=== PATIENT | female | born 1945 | race Caucasian/White ===

== ENCOUNTER → 2019-12-04 | Outpatient (CLI) | payer MEDICARE ==
[2019-12-04 12:25] LABS: ABG BASE EXCESS 3.8 MMOL/L (-2.5-2.5); ABG OXYGEN SATURATION 96 % (94-100); ABG PCO2 37 MMHG (35-45); ABG PH 7.48 (7.37-7.43); ABG PO2 69 MMHG (79-93); ABG TCO2 28.6 MMOL/L (21.0-31.0)
[2019-12-04 12:26] LABS: ALLENS TEST YES-POS; INSPIRED O2 RA
[2019-12-04 12:27] LABS: PATIENT TEMP 36.1; VENTILATOR NO
--- NOTE | 2019-12-04 13:20 | Diagnostic Imaging Report ---
INDICATION: Bronchitis PA and lateral views of the chest were obtained. FINDINGS: The heart size, mediastinal configuration, and pulmonary vascularity are within normal limits. There is no pleural effusion, pneumothorax, or pneumonia. The osseous structures are unremarkable. IMPRESSION: No acute cardiopulmonary abnormality. Dictated by: Dictated on workstation # [id number]
== END ==
LOC: RAD 11:49
PROVIDERS: ATTEND Nurse Practitioner Family
DX: J98.4 Other disorders of lung (principal); J30.9 Allergic rhinitis, unspecified; R91.8 Other nonspecific abnormal finding of lung field; R06.00 Dyspnea, unspecified; R05 Cough
CPT/HCPCS: 71046; 82805

== ENCOUNTER 2019-12-07 12:00 | Outpatient (CLI) | payer MEDICARE ==
[~2019-12-07] VITALS: Ht 162.6 cm; Wt 89.1 kg
[2019-12-07] MEDS ORDERED: FLUT9.9S NS (12:26)
[2019-12-07] MEDS ORDERED: ESOM20CA PO (12:26)
[2019-12-07] MEDS ORDERED: BUDE10.2 IH (12:26)
[2019-12-07] MEDS ORDERED: ENAL1TAB9 PO (12:26)
[2019-12-07] MEDS ORDERED: MONT10TA24 PO (12:26)
[2019-12-07] MEDS ORDERED: CETI10TA20 PO (12:26)
[2019-12-07] MEDS ORDERED: CHOL500061 PO (12:26)
[2019-12-07] MEDS ORDERED: LACT1CAP74 PO (12:26)
== END 2019-12-07 13:33 | disposition home or self-care (01) ==
LOC: PREOP 12:00
PROVIDERS: ATTEND Internal Medicine Critical Care Medicine
DX: Z01.818 Encounter for other preprocedural examination (principal)

== ENCOUNTER → 2020-03-04 | Outpatient (CLI) | payer MEDICARE ==
[~2020-03-04] MED LIST: BUDE10.2 IH; CATHETER FLUSH 10 ML SYR IV PRN; CETI10TA21 PO; CHOL500061 PO; ENAL1TAB9 PO; ESOM20CA PO; FLUT9.9S NS; HOLD METFORMIN - RECEIVED CONTRAST 20 ML VIAL IV SCH; IOHEXOL 350 MG/ML 100 ML (OMNIPAQUE 350) VIAL IV ONE; LACT1CAP74 PO; MONT10TA26 PO; NS 100 ML (IVPB) BAG IV ONE
[2020-03-04 11:38] LABS: BUN/CREATININE RATIO 18; CREATININE SERUM 0.85 MG/DL (0.60-1.30); GFR ESTIMATED > 60
--- NOTE | 2020-03-04 13:29 | Diagnostic Imaging Report ---
PROCEDURE: CT chest with contrast only. TECHNIQUE: Multiple contiguous axial images were obtained through the chest after administration of intravenous contrast. Auto Exposure Controls were utilized during the CT exam to meet ALARA standards for radiation dose reduction. INDICATION: Dyspnea. Cough. COMPARISON: Chest radiograph on 12/13/2019. CTA chest on 11/19/2019. FINDINGS: The heart size is within normal limits. A moderate pericardial effusion is visualized, primarily overlying the left ventricle. This has increased in size compared to the prior exam and measures 1.2 cm in thickness. There is no mediastinal, hilar, or axillary lymphadenopathy. Similar appearance of the nodule in the periphery of the right middle lobe measuring 1.0 cm. Stable nodule in the left upper lobe measuring 0.6 cm. Additional smaller subcentimeter pulmonary nodules are scattered throughout the lungs. A calcified granuloma is noted in the right upper lobe. There are no focal areas of consolidation. No central endobronchial obstructing lesions are identified. There is no pleural effusion or pneumothorax. The osseous structures demonstrate no acute abnormalities. There is hepatic steatosis. Stable focus of hypoattenuation is seen in the left hepatic lobe. Both adrenal glands are unremarkable. IMPRESSION: 1. Multiple nodules throughout the lungs with the largest measuring 1.0 cm in the right middle lobe. These are stable compared to the exam from 11/19/2019. Recommend continued close interval followup in 6 months. Alternatively, PET/CT may be considered to evaluate for metabolic activity. 2. Moderate pericardial effusion, primarily overlying the left ventricle. This has increased in size compared to the prior exam. If not already performed, consider echocardiogram to further evaluate. 3. Hepatic steatosis. Dictated by: Dictated on workstation # [id number]
== END ==
LOC: RAD 10:36
PROVIDERS: ATTEND Nurse Practitioner Family
DX: J30.9 Allergic rhinitis, unspecified (principal); J98.4 Other disorders of lung; R05 Cough; R91.8 Other nonspecific abnormal finding of lung field; R06.00 Dyspnea, unspecified; E66.2 Morbid (severe) obesity with alveolar hypoventilation; I31.3 Pericardial effusion (noninflammatory); K76.0 Fatty (change of) liver, not elsewhere classified
CPT/HCPCS: 36415; 71260; 82565; 84520

== ENCOUNTER → 2020-03-12 | Outpatient (CLI) | payer MEDICARE ==
[~2020-03-12] MED LIST changes: -CATHETER FLUSH 10 ML SYR IV PRN; -HOLD METFORMIN - RECEIVED CONTRAST 20 ML VIAL IV SCH; -IOHEXOL 350 MG/ML 100 ML (OMNIPAQUE 350) VIAL IV ONE; -NS 100 ML (IVPB) BAG IV ONE
--- NOTE | 2020-03-12 13:27 | Diagnostic Imaging Report ---
INDICATION: Prior history of breast carcinoma. Patient has a lung mass. TECHNIQUE: Serum blood glucose level at the time of injection is 140 mg/dL. The patient was administered 15.2 mCi F-18 FDG intravenously in left hand and PET imaging was performed from the top of skull to mid thighs. Noncontrast CT was also performed for attenuation correction and anatomic correlation. COMPARISON: No prior PET studies available for comparison. Comparison is made with a recent CT chest study from 03/04/2020. FINDINGS: There is symmetric activity throughout the brain. Soft tissues of the neck are unremarkable. No axillary hypermetabolism is seen. No mediastinal or hilar hypermetabolism is identified. No hypermetabolic focus in the pulmonary parenchyma is seen. In particular, small nodule described recently in the right middle lobe does not demonstrate hypermetabolic activity. There is a pericardial effusion, decreased when compared with chest CT one week earlier. There is physiologic activity throughout the gastrointestinal and genitourinary tracts. No suspicious hypermetabolism in the abdomen or pelvis is seen. IMPRESSION: Unremarkable PET/CT study. No suspicious hypermetabolism is identified. Continued follow-up of previously noted pulmonary nodules with repeat CT chest in six months is recommended to assure continued stability. Dictated by: Dictated on workstation # [id number]
== END ==
LOC: RAD 09:06
PROVIDERS: ATTEND Nurse Practitioner Family
DX: J98.4 Other disorders of lung (principal); R91.8 Other nonspecific abnormal finding of lung field; R06.00 Dyspnea, unspecified

== ENCOUNTER → 2020-10-04 | Outpatient (CLI) | payer MEDICARE ==
[~2020-10-04] MED LIST changes: -CETI10TA21 PO; +CETI10TA49 PO; +HOLD METFORMIN - RECEIVED CONTRAST 20 ML VIAL IV SCH; +IOHEXOL 350 MG/ML 100 ML (OMNIPAQUE 350) VIAL IV ONE; -MONT10TA26 PO; +MONT10TA97 PO; +NS 100 ML (IVPB) BAG IV ONE
--- NOTE | 2020-10-04 12:12 | Diagnostic Imaging Report ---
PROCEDURE: CT abdomen and pelvis with contrast. TECHNIQUE: Multiple contiguous axial images were obtained through the abdomen and pelvis after administration of intravenous contrast. Auto Exposure Controls were utilized during the CT exam to meet ALARA standards for radiation dose reduction. All CT scans use one or more of the following dose optimizing techniques: automated exposure control, MA and/or KvP adjustment based on patient size and exam type or iterative reconstruction. INDICATION: Low back pain. No prior studies are available for comparison. FINDINGS: The liver demonstrates low density consistent with hepatic steatosis. There is a circumscribed low-attenuation lesion in the left lobe measuring 14 mm suggestive of a cyst. No other liver lesion is identified. The gallbladder is surgically absent. No biliary ductal dilatation is seen. Pancreas and spleen are unremarkable. No adrenal mass is detected. The aorta is non-aneurysmal. No central retroperitoneal or mesenteric lymphadenopathy is detected. There are some fluid-filled small bowel loops throughout the abdomen but no focal transition is seen. There is diverticulosis of the sigmoid colon.. There is no evidence of acute diverticulitis. No free fluid or fluid collection is seen. Bladder is unremarkable. The uterus appears to be surgically absent. IMPRESSION: 1. Hepatic steatosis. 2. Nonspecific fluid-filled small bowel loops throughout the abdomen and pelvis. Nonspecific enteritis cannot be excluded. There is uncomplicated sigmoid diverticulosis as well. No other significant abnormality is seen. Dictated by: Dictated on workstation # [id number]
== END ==
LOC: RAD 11:15
PROVIDERS: ATTEND Registered Nurse
DX: K76.0 Fatty (change of) liver, not elsewhere classified (principal); M54.5 Low back pain; Z90.49 Acquired absence of other specified parts of digestive tract
CPT/HCPCS: 74177

== ENCOUNTER → 2020-10-04 | Outpatient (CLI) | payer MEDICARE ==
[~2020-10-04] MED LIST changes: +CATHETER FLUSH 10 ML SYR IV PRN
[2020-10-04 11:04] LABS: BUN/CREATININE RATIO 24; GFR ESTIMATED > 60
--- NOTE | 2020-10-04 12:04 | Diagnostic Imaging Report ---
CT CHEST W TECHNIQUE: Multiple contiguous axial images were obtained through the chest with the use of intravenous contrast. All CT scans use one or more of the following dose optimizing techniques: automated exposure control, MA and/or KvP adjustment based on a patient size and exam type, or iterative reconstruction. INDICATION: Dyspnea, follow-up pulmonary nodule. COMPARISON: CT chest from 03/04/2020. FINDINGS: Lungs and airway: No endoluminal nodule within the trachea. No pulmonary mass or consolidation. Left upper lobe 5 mm pulmonary nodule is unchanged (image 27, series 3). Linear scar within the left lower lobe is stable. The 9 mm pulmonary nodule in the right middle lobe is stable. Pleura: No pleural effusion or pneumothorax. Heart and mediastinum: Thyroid is normal. No supraclavicular or axillary lymphadenopathy. No mediastinal, discrete hilar or juxtaphrenic lymphadenopathy. Small pericardial effusion is unchanged measuring up to 8 mm along the left ventricular base. Upper abdomen: No concerning abnormality in the upper abdomen. Stable cyst in the left hepatic lobe. Please see report for CT abdomen and pelvis performed concurrently for more complete details. Musculoskeletal: No worrisome focal osseous lesions. IMPRESSION: 1. The pulmonary nodules in the right middle and left upper lobe are stable. Based on the Fleischner guidelines, consider follow-up CT chest without contrast in 12-18 months to reassess stability. 2. Stable small pericardial effusion. Dictated by: Dictated on workstation # [id number]
== END ==
LOC: RAD 10:29
PROVIDERS: ATTEND Nurse Practitioner Family
DX: R91.1 Solitary pulmonary nodule (principal); J30.9 Allergic rhinitis, unspecified; J98.4 Other disorders of lung; I31.3 Pericardial effusion (noninflammatory)
CPT/HCPCS: 36415; 71260; 82565; 84520